=== PATIENT | female | born 1970 | race Caucasian/White ===

== ENCOUNTER 2019-02-25 20:01 | Emergency (ER) | payer BC ==
[~2019-02-25] VITALS: Ht 162.6 cm; Wt 60.5 kg
[2019-02-25 20:09] VITALS: BP 135/81; PULSE 85; TEMP 98.5
== END 2019-02-25 21:58 | disposition home or self-care (01) ==
LOC: COL.ER 20:01
DX: S81.812A Laceration without foreign body, left lower leg, initial encounter (principal); Z23 Encounter for immunization; Z88.1 Allergy status to other antibiotic agents; W27.0XXA Contact with workbench tool, initial encounter; Y92.009 Unspecified place in unspecified non-institutional (private) residence as the place of occurrence of the external cause